=== PATIENT | female | born 1970 | race Caucasian/White ===

== ENCOUNTER 2022-12-25 09:05 | Outpatient (CLI) | payer OTHER, SELFPAY ==
[2022-12-25 11:32] LABS: Albumin* 4.8 g/dL (3.3-5.0); Chloride* 106 mmol/L (96-114)
[2022-12-25 11:33] LABS: Potassium* 4.4 mmol/L (3.6-5.1); Sodium* 141 mmol/L (135-149)
[2022-12-25 11:35] LABS: Alkaline Phosphatase* 86 U/L (40-150); Aspartate Amino Transferase* 27 U/L (12-35); Blood Urea Nitrogen* 16 mg/dL (7-30); Carbon Dioxide* 28 mmol/L (20-32); Cholesterol* 255 mg/dL (90-199); Creatinine* 1.1 mg/dL (0.5-1.5); Estimated Glomerular Filt Rate 60 ml/min; Glucose* 97 mg/dL (60-115); Total Protein* 8.2 g/dL (6.0-8.3); Triglycerides* 124 mg/dL (40-149)
[2022-12-25 11:36] LABS: Alanine Aminotransferase* 27 U/L (4-35); HDL Cholesterol* 85 mg/dL (>=50); LDL Cholesterol Calculated 145 mg/dL (<100)
== END 2022-12-25 09:06 | disposition home or self-care (01) ==
LOC: NFLDREF 09:05
PROVIDERS: PCP Family Medicine; Visit Provider Family Medicine
DX: Z01.419 Encounter for gynecological examination (general) (routine) without abnormal findings (principal); E03.9 Hypothyroidism, unspecified; E78.5 Hyperlipidemia, unspecified; E66.9 Obesity, unspecified
CPT/HCPCS: 80053; 80061; 84443

== ENCOUNTER 2023-03-01 07:54 | Outpatient (CLI) | payer OTHER, SELFPAY ==
--- OUTSIDE RECORDS SUMMARY | 2023-03-01 17:18 | XMS_ITS | Continuity of Care Document ---
Author Name Unknown Organization [facility] Address [address] [address] [place] [address] Phone Care Team Providers Care Acquisition Professional Name Role Phone Yusuf GALEANA Ulisses Unavailable Unavailable Procedures Procedure Date Subsqt Hosp-da E&m Minr Compl 0 Advance Directives Directive Yes / No Effective Date File Name No Information Encounters Encounter Description Practice Location Reason(s) For Visit Diagnoses Date Provider Providers Copied on Encounter [facility], [address] [address], [place], [place], [id number], [place] tel:[phone] [facility] No Information 0 Yusuf GALEANA Ulisses. [address], [id number] , [place]. tel:[phone] Subsqt Hosp-da E&m Minr Compl [facility], [address] [address], [place], [place], [id number], [place] tel:[phone] [facility] No Information 0 Pedro Pablo BAR Madeline. [address] [place] [address], [id number] , [place]. tel:[phone] Referring Provider: Lenka Jimenez MD, [address] [place], [address]. tel:[phone] Family History Family Member Type Diagnosis Age At Onset No Information Payers Payer name Insurance type Covered green party ID Authoriza tion(s) No Information Social History Type Description Quantity Date Captured Comments Alcohol Use Details Unknown Caffeine Use Details Unknown Tobacco Use Status No Information Smoking Status No Information Sex Female Chief Complaint And Reason For Visit No Information Reason For Referral Reason For Referral No Information Plan Of Treatment Date Type Action Status No Information History Of Present Illness Encounter Date Complaint History Of Prese nt Illness No Information Functional Status Date Functional Assessmen t No Information Instructions Date Instruction Additional Infor mation No Information Assessments Type Assessment Date No Information Patient Care Teams Name Effective Dates (start - stop) Status Members No Information
== END 2023-03-01 07:55 | disposition home or self-care (01) ==
LOC: NFLDREF 17:17
PROVIDERS: PCP Family Medicine; Referring Provider Family Medicine; Visit Provider Family Medicine
DX: E78.5 Hyperlipidemia, unspecified (principal)
CPT/HCPCS: 80061

== ENCOUNTER 2023-03-26 08:07 | Outpatient (CLI) | payer OTHER, SELFPAY ==
--- NOTE | 2023-03-26 08:15 | CRLHL7_ITS ---
For Patients: As a result of the Century Cures Act, medical imaging exams and procedure reports are released immediately into your electronic medical record. You may view this report before your referring provider. If you have questions, please contact your health care provider. BILATERAL SCREENING MAMMOGRAM WITH COMPUTER-AIDED DETECTION AND TOMOSYNTHESIS INDICATION: 52-year-old asymptomatic female. Screening evaluation. Family history of breast cancer. No personal history of breast cancer or biopsies. TECHNIQUE: CC and MLO views were obtained. This digital study was evaluated with the assistance of computer-aided detection. Digital breast tomosynthesis utilized in interpretation. COMPARISON: March 19, 2022 and October 11, 2019. FINDINGS: There are scattered areas of fibroglandular density Benign lymph nodes upper outer RIGHT breast seen previously. No suspicious microcalcifications or regions of architecture distortion. IMPRESSION: Nothing specific for malignancy in either breast and no change. Annual mammography is recommended. BI-RADS Category 2: Benign A lay language report of this examination will be provided to the patient. Dictated by: Micheal Gonzalez MD @03/26/2023 10:46:54 AM/sulema JANINA/Dictated by: Micheal Gonzalez MD @ 03/26/2023 10:46:00 AM (Electronically Signed)
== END 2023-03-26 08:08 | disposition home or self-care (01) ==
PROVIDERS: PCP Family Medicine; Visit Provider Family Medicine
DX: Z12.31 Encounter for screening mammogram for malignant neoplasm of breast (principal); Z80.3 Family history of malignant neoplasm of breast
CPT/HCPCS: 77063; 77067

== ENCOUNTER 2023-12-30 07:41 | Outpatient (CLI) | payer BC, SELFPAY | END 2023-12-30 07:42 | disposition home or self-care (01) | LOC: NFLDREF 12:10 | PROVIDERS: PCP Family Medicine; Referring Provider Family Medicine; Visit Provider Family Medicine | DX: E78.5 Hyperlipidemia, unspecified (principal); E03.9 Hypothyroidism, unspecified; Z13.228 Encounter for screening for other metabolic disorders | CPT/HCPCS: 80053; 80061; 84443 ==

== ENCOUNTER 2024-09-25 10:13 | Outpatient (CLI) | payer BC, SELFPAY ==
--- OUTSIDE RECORDS SUMMARY | 2024-09-25 10:17 | XMS_ITS | Clinical Summary ---
Author Organization [facility] Address [place], [place] [address] Care Team Providers Care Slp Teacher Name Role Phone Lenka Jimenez MD Primary Care Provider + Allergies No known active allergies Medications Medication Sig Dispensed Refills Start Date End Date Status levothyroxine (SYNTHROID) 50 mcg tablet Take 50 mcg by mouth once daily. 05/12/2017 Active oxyCODONE (ROXICODONE) 5 mg immediate release tablet Take 1-2 tablets by mouth every 4 hours if needed 11/25/2019 Active Active Problems Problem Noted Date Diagnosed Date Choledocholithiasis 12/01/2019 Transaminitis 11/29/2019 Abdominal pain 11/29/2019 S/P cholecystectomy 11/29/2019 Hypothyroidism 11/29/2019 Stress incontinence 12/25/2014 Dysthymic disorder 10/19/2007 Overview (12/25/2014): Stable off medications. Italia Sawant M.D. 12/25/2014 9:19 AM HCM 03/09/2007 Overview (03/12/2007): pap 06/10/05 Elevated transaminase level Resolved Problems Problem Noted Date Diagnosed Date Resolved Date Menorrhagia 12/20/2012 12/25/2014 Herpes simplex without menti on of complication 10/28/2010 12/25/2014 Immunizations Name Administration Dates Next Due AMB Influenza, IIV4 PF (=>6 mos Flulaval,Fluzone Fluarix)(Flu Clinic Only) 09/04/2017 Influenza, IIV3 (Age >=3 years) 08/28/20 14,12/20/2012,11/09/2011, 0,10/27/2007 Td (Age >=7 Years) 07/01/2005 Tdap 11/09/2011 Family History Medical History Relation Name Comments Heart Disease Father age 59 Hyperlipidemia Father Hypertension Father Leukemia Father Psychiatric illness Maternal Aunt depress ion in 2 aunts and bipolar in another Cancer-breast Mother age 69 Hyperlipidemia Mother Hypertension Mother Psychiatric illness Mother depressi on Thyroid Disease Mother Grave's dise ase Scleroderma Sister Cancer-colon No Family History Relation Name Status Comments Father Alive Maternal Aunt Mother Alive Sister Social History Tobacco Use Types Packs/Day Years Used Date Smoking Tobacco: Never Smokeless Tobacco: Never Tobacco Cessation:Counseling Given: Yes Alcohol Use Standard Drinks/Week Comments Yes 0 (1 standard drink = 0.6 oz pur e alcohol) occasional Sex and Gender Information Value Date Recorded Sex Assigned at Not on file Gender Identity Not on file Sexual Orientation Not on file Obstetrics History Para Term AB IAB SAB Ectopic Multiple Livin g Live Births 9 3 3 3 2 1 3 3 Date Outcome GA Total Labor Labor/2nd/3rd Weight Sex Type Anes PTL Nyla A1 A5 Name Clin SAB IAB IAB Term Term Term 000 40w 0d 3.37 kg (7 lb 7 oz) F [facility] 7 7 Delivery Location:[facility] 001 40w 0d 4.39 kg (9 lb 11 oz) M [facility] 9 9 Delivery Location:[facility] 003 39w 0d 3.43 kg (7 lb 9 oz) M [facility] 9 9 Delivery Location:[facility] Last Filed Vital Signs Vital Sign Reading Time Taken Comments Blood Pressure 130/76 12/01/2019 8:00 AM THERMAL CUTTING MACHINE OPERATOR Pulse 81 12/01/2019 8:00 AM THERMAL CUTTING MACHINE OPERATOR Temperature 36.3 ??C (97.4 ??F) 12/01/2019 8:00 AM CS T Respiratory Rate 16 12/01/2019 8:00 AM THERMAL CUTTING MACHINE OPERATOR Oxygen Saturation 99% 12/01/2019 8:00 AM THERMAL CUTTING MACHINE OPERATOR Inhaled Oxygen Concentration - - Weight 87.7 kg (193 lb 4.8 oz) 12/01/2019 6:41 A M THERMAL CUTTING MACHINE OPERATOR Height 175.3 cm (5' 9) 11/29/2019 7:50 AM THERMAL CUTTING MACHINE OPERATOR Body Mass Index 28.55 11/29/2019 7:50 AM THERMAL CUTTING MACHINE OPERATOR Plan of Treatment Health Maintenance Due Date Last Done Comments Depression screening for age 12+ 1980 HIV for age 15-65 1983 BMI (ht and wt on same day) for age 18+ 1986 Hepatitis C screening for age 18-79 1986 Colonoscopy through age 75 2013 Mammogram for age 45-75 12/25/2015 12/25/19 15, 01/05/2013, 01/03/2013, Additional history exists Zoster (shingles) series for age 50+ (1 of 2) 2018 Lipids for age 45-75 12/25/2019 12/25/2014, 10/28/2010, 10/01/2008 Tetanus booster 11/09/2021 11/09/2011, 07/01/2005 COVID-19 vaccine series (2023- season) 2024 Influenza for age 50-64 07/30/2024 09/04/20 17, 08/28/2014, 12/20/2012, Additional history exists Pap test for age 21-65 12/31/2025 3, 12/31/2022, 05/12/2017, Additional history exists Tdap Completed 11/09/2011 Pneumococcal series for age 6-64 Aged Out No longer eligible based on patient's age to complete this topic Procedures Procedure Name Priority Date/Time Associated Diagnosis Comments HPV HIGH RISK Routine 12/31/2022 1:25 PM THERMAL CUTTING MACHINE OPERATOR LIPID PANEL W REFLEX MEASURED LDL Routine 12/25/2014 9:51 AM THERMAL CUTTING MACHINE OPERATOR Screening for lipoid disorders XR MAMMO BILAT SCREEN FFDM (IA) Routine 12/25/2014 9:13 AM THERMAL CUTTING MACHINE OPERATOR Other screening mammogram from Last 3 Months or Most Recently Relevant to Health Maintenance Results * HPV HIGH RISK (12/31/2022 1:25 PM THERMAL CUTTING MACHINE OPERATOR) TYPE 16 Negative Negative 01/05/2023 4:23 PM THERMAL CUTTING MACHINE OPERATOR [facility] TYPE 18 Negative Negative 01/05/2023 4:23 PM THERMAL CUTTING MACHINE OPERATOR [facility] OTHER HIGH RISK TYPES Negative Negative 01/05/2023 4:23 PM [facility] Other (Cervical/Vagina l) 12/31/2022 1:25 PM THERMAL CUTTING MACHINE OPERATOR 01/04/2023 8:00 AM THERMAL CUTTING MACHINE OPERATOR Narrative [facility] - 01/05/2023 4:23 PM THERMAL CUTTING MACHINE OPERATOR HPV types 16, 18, 31, 33, 35, 39, 45, 51, 52, 56, 58, 59, 66 and 68 DNA were undetectable or below the pre-set threshold. Methodology: Sophie Ritika 4800 HPV Test Lenka Jimenez MD MICROBIOLOGY [facility] [address] [place] [address], [place] * (ABNORMAL) LIPID PANEL W REFLEX MEASURED LDL (12/25/2014 9:51 AM THERMAL CUTTING MACHINE OPERATOR) CHOLESTEROL,TOTAL 219(H) 100 - 199 mg/dL 12/25/2014 10:25 AM [facility] TRIGLYCERIDES 189(H) <150 mg/dL 12/25/2014 10:25 AM [facility] HDL CHOLESTEROL 55 >40 mg/dL 5 10:25 AM [facility] NON-HDL CHOLESTEROL 164(H) <145 mg/dl 12/25/2014 10:25 AM [facility] CHOL/HDL RATIO 3.98 <4.50 12/25/2014 10:25 AM [facility] LDL CHOLESTEROL 126 <=130 mg/dL 12/25/2014 10:25 AM [facility] PATIENT STATUS FASTING 12/25/2014 10:25 AM [facility] Blood specimen (specimen) BLOOD SPECIMEN / Unknown Venipuncture / Unknown 12/25/2014 9:51 AM THERMAL CUTTING MACHINE OPERATOR 12/25/2014 9:51 AM THERMAL CUTTING MACHINE OPERATOR Italia Sawant CHEMISTRY [facility] [address] [place], [place] [address] [phone] * XR MAMMO BILAT SCREEN FFDM (12/25/2014 9:13 AM THERMAL CUTTING MACHINE OPERATOR) Anatomical Region Laterality Modality BREASTS, Breast Left, Breast Right Bilateral Mammography Impressions 12/25/2014 12:12 PM THERMAL CUTTING MACHINE OPERATOR ??There is no radiographic evidence for malignancy. ??Recommend annual mammograms. A lay language report of this examination will be provided to the patient. MAMMOGRAM ASSESSMENT: ??ACR 2 Benign Narrative 12/25/2014 12:12 PM THERMAL CUTTING MACHINE OPERATOR XR MAMMO BILAT SCREEN FFDM [G0202.0] CLINICAL HISTORY: ??This is an asymptomatic 44 y.o. patient. INDICATION FOR EXAM: Mammogram Screening. TECHNIQUE: CC & MLO views were obtained. ??This digital study was evaluated with the assistance of Computer-Aided Detection. ?? COMPARISON FILMS: Yes 01/03/13 [facility] 11/09/11 [facility] FINDINGS: ??Mammographically, the breast tissue has scattered fibroglandular densities. ??No suspicious masses or microcalcifications. ?? Benign appearing calcifications within both breasts and Intramammary lymph node within right breast. Procedure Note Jamal Newman, DO - 12/25/2014 XR MAMMO BILAT SCREEN FFDM [G0202.0] CLINICAL HISTORY: This is an asymptomatic 44 y.o. patient. INDICATION FOR EXAM: Mammogram Screening. TECHNIQUE: CC & MLO views were obtained. This digital study was evaluatedwith the assistance of Computer-Aided Detection. COMPARISON FILMS: Yes 01/03/13 [facility] 11/09/11 [facility] FINDINGS: Mammographically, the breast tissue has scatteredfibroglandular densities. No suspicious masses or microcalcifications.Benign appearing calcifications within both breasts and Intramammary lymphnode within right breast. IMPRESSION: There is no radiographic evidence for malignancy. Recommendannual mammograms. A lay language report of this examination will be provided to the patient. MAMMOGRAM ASSESSMENT: ACR 2 Benign Italia Sawant MAMMO from Last 3 Months or Most Recently Relevant to Health Maintenance Advance Directives * Full Code (Latest Code Status on File) Date Activated Date Inactivated Comments 11/29/2019 10:06 AM 12/01/2019 7:29 PM Care Teams Slp Teacher Relationship Specialty Start Date End Date Lenka Jimenez MD [address] [place] [address] PCP - General Family Practice 11/30/19
--- NOTE | 2024-09-25 10:45 | CRLHL7_ITS ---
For Patients: As a result of the Century Cures Act, medical imaging exams and procedure reports are released immediately into your electronic medical record. You may view this report before your referring provider. If you have questions, please contact your health care provider. BILATERAL SCREENING MAMMOGRAM WITH COMPUTER-AIDED DETECTION AND TOMOSYNTHESIS TECHNIQUE: CC and MLO views were obtained. These mammographic images have been obtained using full-field digital technique. These mammographic images were interpreted with the benefit of computer-aided detection. Breast Tomosynthesis was used in this interpretation. COMPARISON FILM: 03/26/23, 03/19/22, 10/11/19. FINDINGS: There are scattered areas of fibroglandular density. IMPRESSION: There is no radiographic evidence for malignancy. ASSESSMENT: BI-RADS Category 1: Negative RECOMMENDATION: Routine screening mammogram in 1 year. A lay language report of this examination will be provided to the patient. Max Lakhani M.D. Diagnostic Radiologist [email or web address] SP/Dictated by: Max Lakhani MD @ 09/25/2024 11:08:00 AM (Electronically Signed)
== END 2024-09-25 10:14 | disposition home or self-care (01) ==
LOC: MAMMO 10:14
PROVIDERS: PCP Family Medicine; Visit Provider Family Medicine
DX: Z12.31 Encounter for screening mammogram for malignant neoplasm of breast (principal)
CPT/HCPCS: 77063; 77067

== ENCOUNTER 2025-01-15 07:30 | Outpatient (CLI) | payer BC, SELFPAY | END 2025-01-15 07:31 | disposition home or self-care (01) | LOC: NFLDREF 01-17 06:27 | PROVIDERS: PCP Family Medicine; Referring Provider Family Medicine; Visit Provider Family Medicine | DX: E78.5 Hyperlipidemia, unspecified (principal); E03.9 Hypothyroidism, unspecified; R53.83 Other fatigue | CPT/HCPCS: 80053; 80061; 84443 ==